=== PATIENT | female | born 1950 | race Caucasian/White ===

== ENCOUNTER 2021-11-02 08:57 | Emergency (ER) | payer MEDICARE ==
[~2021-11-02 08:57] MED LIST: CALCIUM + D3 E1 EACH PO; CARAFATE S500 MG/TSP PO; CITALOPRAM HBR40 MG PO; IRON 100 PLUS1 EACH PO; KEPPRA XR750 MG PO; LIPITOR40 M1 PO; NEURONTIN400 MG PO; NORCO 5-325 TA1 EACH PO; ONDANSETRON ODT4 MG SL; PERCOCET PO; PRILOSEC20 MG PO; PROTONIX 40MG T40 MG PO; ZOFRAN8 MG PO
[2021-11-02 10:39] LABS: ALBUMIN 3.7 g/dL (3.4-5.0); BILIRUBIN - TOTAL 0.5 mg/dL (0.2-1.0); BUN/CREAT RATIO (CALC) 22.4 RATIO; CREATININE 0.58 mg/dL (0.51-0.95); MAGNESIUM 1.7 mg/dL (1.8-2.4); POTASSIUM 3.7 mmol/L (3.5-5.1); TOTAL PROTEIN 6.7 g/dL (6.4-8.2)
[2021-11-02 10:45] LABS: BASOPHIL 0.5 % (0-2); EOSINOPHIL 1.7 % (0-7); HCT 41.6 % (37.0-47.0); HGB 14.1 g/dl (12.5-16.0); LYMPHOCYTE 21.4 % (15-48); MCH 34.8 pg (25.0-31.0); MCHC 33.9 g/dL (32.0-36.0); MCV 102.7 fL (78.0-100.0); MONOCYTE 10.7 % (0-12); MPV 10.1 fL (6.0-9.5); NEUTROPHIL 65.2 % (41-80); NRBC 0; PLT 171 K/uL (150-400); RBC 4.05 M/uL (4.20-5.40)
[2021-11-02] MEDS ORDERED: NORCO 5-325 TA1 EACH PO (14:46)
[2021-11-02] MEDS ORDERED: CEPHALEXIN250 MG PO (14:48)
[2021-11-06] MEDS ORDERED: VIMPAT200 MG PO (13:00)
[2021-11-06] MEDS ORDERED: FOSAMAX70 MG PO (13:01)
[2021-11-06] MEDS ORDERED: DIOVAN40 MG PO (13:02)
[2021-11-06] MEDS ORDERED: POTASSIUM CHLORIDE PO (13:03)
[2021-11-06] MEDS ORDERED: CYMBALTA20 MG PO (13:03)
[2021-11-06] MEDS ORDERED: BACLOFEN 10MG T10 MG PO (13:04)
[2021-11-06] MEDS ORDERED: MOBIC7.5 MG PO (13:04)
[2021-11-06] MEDS ORDERED: ARTHRITIS PAIN150 GM TOP (13:05)
== END 2021-11-02 15:28 | disposition home or self-care (01) ==
LOC: FER 08:57
PROVIDERS: Emergency Medicine
DX: S52.501A Unspecified fracture of the lower end of right radius, initial encounter for closed fracture (principal); S61.511A Laceration without foreign body of right wrist, initial encounter; G40.909 Epilepsy, unspecified, not intractable, without status epilepticus; I10 Essential (primary) hypertension; Z88.1 Allergy status to other antibiotic agents; Z91.040 Latex allergy status; Z79.899 Other long term (current) drug therapy; W19.XXXA Unspecified fall, initial encounter
CPT/HCPCS: 36415; 73100; 73110; 80053; 83735; 85025; 96374; 96375; J1170; J2405; J2704; J7040

== ENCOUNTER → 2021-11-06 | Day surgery (SDC) | payer MEDICARE ==
[~2021-11-06] VITALS: Ht 170.2 cm; Wt 70.5 kg
[~2021-11-06] MED LIST changes: +ARTHRITIS PAIN150 GM TOP; +BACLOFEN 10MG T10 MG PO; +CEPHALEXIN250 MG PO; +CYMBALTA20 MG PO; +DIOVAN40 MG PO; +FOSAMAX70 MG PO; +MOBIC7.5 MG PO; +POTASSIUM CHLORIDE PO; +VIMPAT200 MG PO
[2021-11-06 13:56] LABS: BUN/CREAT RATIO (CALC) 14.8 RATIO; CREATININE 0.61 mg/dL (0.51-0.95); POTASSIUM 3.9 mmol/L (3.5-5.1)
== END | disposition home or self-care (01) ==
LOC: FAS 12:49
PROVIDERS: Anesthesiology
DX: S52.571A Other intraarticular fracture of lower end of right radius, initial encounter for closed fracture (principal); X58.XXXA Exposure to other specified factors, initial encounter; Z88.8 Allergy status to other drugs, medicaments and biological substances; Z91.040 Latex allergy status
CPT/HCPCS: 36415; 71045; 73100; 76000; 80048; 93005; J0690; J1170; J2250; J2405; J2704; J2795; J3010; J7120